=== PATIENT | female | born 2000 | race Caucasian/White ===

== ENCOUNTER 2023-08-07 19:40 | Day surgery (SDC) | payer OTHER ==
[2023-08-07] MEDS ORDERED: hydrALAZINE 20 MG/ML VIAL SLOW IVP PRN (20:16)
[2023-08-07 20:52] LABS: Bilirubin Neg (Negative); Blood, Urine 250 (Negative); Clarity Cloudy (Clear); Glucose, Urine (Dipstick) Normal (Negative); Ketone, Urine Negative (Negative); Leukocyte 25 (Negative); Nitrite Positive (Negative); Protein, Urine (Dipstick) 30 mg/dl (Neg-Trace); Urobilinogen Normal mg/dL (Less than 2); pH, Urine 6.5 (5.0-9.0)
[2023-08-07 21:04] VITALS: BMI 50.8
[2023-08-07 21:23] LABS: Bacteria/HPF 3+ HPF (None Seen); CAUTI Indications for Culture Pregnancy
[2023-08-07 21:25] LABS: Urine Culture Reflex Yes Yes
[2023-08-07 21:25] LABS: #Basophils 0.03 10x3/uL (0.0-0.2); #Eosinphils 0.21 10x3/uL (0.0-0.5); #Monocytes 0.68 10x3/uL (0.0-1.1); #Neutrophils 5.67 10x3/uL (1.5-8.4); %Basophils 0.3 % (0.0-2.0); %Eosinophils 2.4 % (0.0-6.0); %Lymphocytes 22.9 % (18.0-47.0); %Monocytes 7.9 % (0.0-10.0); %Neutrophils 65.8 % (40.0-75.0); Hematocrit 32.8 % (34.9-44.5); Hemoglobin 10.6 g/dL (12.0-15.5); Mean Corpuscular HGB CONC 32.3 g/dL (32.0-36.0); Mean Corpuscular Hemoglobin 27.2 pg (27.0-33.0); Mean Corpuscular Volume 84.3 fL (81.6-98.3); Platelet Count 256 10x3/uL (150-450); RBC Distribution Width 14.8 % (11.5-14.5); Red Blood Cell (RBC) Count 3.89 10x6/uL (3.90-5.03); White Blood Cell (WBC) Count 8.6 10x3/uL (3.5-10.5)
[2023-08-07 21:39] LABS: ALT (SGPT) 22 U/L (8-55); AST (SGOT) 17 U/L (5-34); Albumin 2.6 g/dL (3.5-5.0); Alkaline Phosphatase 110 U/L (40-110); Anion Gap 13 mmol/L (10-20); BUN (Urea Nitrogen) 7 mg/dL (7.0-18.7); Bilirubin, Total Less than 0.2 mg/dL (0.2-1.2); Calc. Creatinine Clearance 320 mL/min (70-130); Calcium 9.1 mg/dL (7.8-10.44); Carbon Dioxide 21 mmol/L (22-29); Chloride 106 mmol/L (98-107); Estimated GFR 132; Globulin 3.8 g/dL (2.4-3.5); Glucose 90 mg/dL (70-105); Potassium 3.7 mmol/L (3.5-5.1); Protein, Total 6.4 g/dL (6.0-8.3); Sodium 136 mmol/L (136-145)
[2023-08-07] MEDS: Acetaminophen 500 MG TAB PO SCH (21:51)
[2023-08-07] MEDS: Nitrofurantoin Monohyd/M-Cryst 100 MG CAP PO SCH (22:38)
== END 2023-08-07 23:34 | disposition home or self-care (01) ==
LOC: CSHLD/OP 19:40
PROVIDERS: ATTEND Emergency Medicine
DX: O99.891 Other specified diseases and conditions complicating pregnancy (principal); R19.7 Diarrhea, unspecified; M54.50 Low back pain, unspecified; R03.0 Elevated blood-pressure reading, without diagnosis of hypertension; R10.9 Unspecified abdominal pain; O23.592 Infection of other part of genital tract in pregnancy, second trimester; N89.8 Other specified noninflammatory disorders of vagina; O99.342 Other mental disorders complicating pregnancy, second trimester; F32.A Depression, unspecified; F41.9 Anxiety disorder, unspecified; G47.00 Insomnia, unspecified; O99.212 Obesity complicating pregnancy, second trimester; O99.012 Anemia complicating pregnancy, second trimester; Z90.49 Acquired absence of other specified parts of digestive tract; Z79.82 Long term (current) use of aspirin; Z79.899 Other long term (current) drug therapy; Z88.1 Allergy status to other antibiotic agents; Z88.0 Allergy status to penicillin; Z3A.26 26 weeks gestation of pregnancy
CPT/HCPCS: 80053; 81001; 82570; 84156; 85025; 87086; 87480; 87510; 87660

== ENCOUNTER 2023-08-28 11:20 | Day surgery (SDC) | payer OTHER ==
[2023-08-28] MEDS: Acetaminophen 500 MG TAB PO SCH (13:45)
[2023-08-28 14:22] LABS: Bilirubin Neg (Negative); Blood, Urine Negative (Negative); Clarity Slightly Cloudy (Clear); Glucose, Urine (Dipstick) Normal (Negative); Ketone, Urine 150 mg/dL (Negative); Leukocyte Negative (Negative); Nitrite Negative (Negative); Protein, Urine (Dipstick) 15 mg/dl (Neg-Trace); Urobilinogen Normal mg/dL (Less than 2)
[2023-08-28 15:26] LABS: CAUTI Indications for Culture Pregnancy
[2023-08-28 15:28] LABS: Bacteria/HPF 3+ HPF (None Seen); Mucous/LPF 3+ LPF (<2+); RBC/HPF 0-3 HPF (0-3)
[2023-08-28 15:30] LABS: Urine Culture Reflex Yes Yes
== END 2023-08-28 14:20 | disposition home or self-care (01) ==
LOC: CSHLD/OP 11:20
PROVIDERS: ATTEND Obstetrics & Gynecology
DX: O36.8130 Decreased fetal movements, third trimester, not applicable or unspecified (principal); O99.891 Other specified diseases and conditions complicating pregnancy; R03.0 Elevated blood-pressure reading, without diagnosis of hypertension; R10.9 Unspecified abdominal pain; O99.213 Obesity complicating pregnancy, third trimester; O00.01 Abdominal pregnancy with intrauterine pregnancy; E66.01 Morbid (severe) obesity due to excess calories; O99.343 Other mental disorders complicating pregnancy, third trimester; F41.1 Generalized anxiety disorder; F32.9 Major depressive disorder, single episode, unspecified; O99.713 Diseases of the skin and subcutaneous tissue complicating pregnancy, third trimester; O24.419 Gestational diabetes mellitus in pregnancy, unspecified control; L73.2 Hidradenitis suppurativa; Z90.49 Acquired absence of other specified parts of digestive tract; Z79.82 Long term (current) use of aspirin; Z79.899 Other long term (current) drug therapy; Z88.1 Allergy status to other antibiotic agents; Z88.0 Allergy status to penicillin; Z79.84 Long term (current) use of oral hypoglycemic drugs; Z3A.29 29 weeks gestation of pregnancy
CPT/HCPCS: 81001; 87086; 99283

== ENCOUNTER 2023-09-25 18:35 | Day surgery (SDC) | payer OTHER ==
[2023-09-25] MEDS ORDERED: hydrALAZINE 20 MG/ML VIAL SLOW IVP PRN (19:03)
[2023-09-25 19:15] VITALS: BMI 50.8
[2023-09-25] MEDS ORDERED: Acetaminophen 325 MG TAB PO PRN (20:02)
[2023-09-25 20:13] LABS: Fetal Membranes Rupture No Membranes Rupture (No Rupture)
[2023-09-25] MEDS: Acetaminophen 500 MG TAB PO SCH (21:02)
== END 2023-09-25 21:10 | disposition home or self-care (01) ==
LOC: CSHLD/OP 18:35
PROVIDERS: ATTEND Student in an Organized Health Care Education/Training Program
DX: Z03.71 Encounter for suspected problem with amniotic cavity and membrane ruled out (principal); O99.343 Other mental disorders complicating pregnancy, third trimester; F41.9 Anxiety disorder, unspecified; F32.9 Major depressive disorder, single episode, unspecified; O99.353 Diseases of the nervous system complicating pregnancy, third trimester; G47.00 Insomnia, unspecified; E66.01 Morbid (severe) obesity due to excess calories; O99.213 Obesity complicating pregnancy, third trimester; L73.2 Hidradenitis suppurativa; O99.713 Diseases of the skin and subcutaneous tissue complicating pregnancy, third trimester; O99.013 Anemia complicating pregnancy, third trimester; O99.891 Other specified diseases and conditions complicating pregnancy; R03.0 Elevated blood-pressure reading, without diagnosis of hypertension; Z88.1 Allergy status to other antibiotic agents; Z88.8 Allergy status to other drugs, medicaments and biological substances; Z3A.33 33 weeks gestation of pregnancy; Z88.0 Allergy status to penicillin; Z79.899 Other long term (current) drug therapy
CPT/HCPCS: 84112; 87480; 87510; 87660; 99285